=== PATIENT | male | born 1955 ===

== ENCOUNTER → 2021-07-24 | Outpatient (CLI) | payer SELFPAY | END | disposition home or self-care (01) | LOC: LAB SHORT 17:21 | DX: R21 Rash and other nonspecific skin eruption (principal); D18.01 Hemangioma of skin and subcutaneous tissue; R20.2 Paresthesia of skin; L85.3 Xerosis cutis; L57.8 Other skin changes due to chronic exposure to nonionizing radiation | CPT/HCPCS: 87070; 87205 ==

== ENCOUNTER → 2021-07-24 | Outpatient (CLI) | payer SELFPAY | LOC: LAB SHORT 07:15 | DX: L73.9 Follicular disorder, unspecified (principal); L02.01 Cutaneous abscess of face | CPT/HCPCS: 88312 ==